=== PATIENT | female | born 1940 | race Caucasian/White ===

== ENCOUNTER 2018-10-08 04:06 | Inpatient (IN) | payer OTHER ==
[~2018-10-08] VITALS: Ht 162.6 cm; Wt 70.3 kg
[2018-10-08 04:56] LABS: HEMATOCRIT. 30.9 % (36.0-48.0); HEMOGLOBIN. 10.5 g/dL (12.0-16.0); MEAN CORPUSCULAR HEMOGLOBIN 29.4 pg (28.0-32.0); MEAN CORPUSCULAR VOLUME 86.5 fL (81.0-99.0); MEAN PLATELET VOLUME 7.5 fl (7.4-10.4); PLATELET 420 x1000/uL (130-400); RED BLOOD CELL COUNT 3.58 mill/uL (4.2-5.4); RED CELL DISTRIBUTION WIDTH 13.7 % (11.6-14.6)
[2018-10-08 05:07] LABS: CHLORIDE 98 mEq/L (98-107)
[2018-10-08 05:11] LABS: INR 1.2; PARTIAL THROMBOPLASTIN TIME 27.2 sec (23.4-31.0); PROTHROMBIN TIME 12.3 sec (9.1-11.1)
[2018-10-08 05:54] LABS: PLATELET ESTIMATE NORMAL
[2018-10-08] MEDS ORDERED: SODIUM CHLORIDE 0.9% 1,000 ML IV ONE (06:14)
[2018-10-08] MEDS ORDERED: FAMOTIDINE 20MG/2ML VIAL IV STA (06:14)
[2018-10-08] MEDS ORDERED: MORPHINE SULFATE 2 MG/ML CPJ (NOT FOR IM USE) IV STA (06:14)
[2018-10-08] MEDS ORDERED: ONDANSETRON HCL 4MG/2ML INJ IV STA (06:14)
[2018-10-08 07:09] LABS: INR 1.2
[2018-10-08 07:28] LABS: CLARITY URINE CLOUDY (CLEAR); COLOR URINE DARK YELLOW (YELLOW); KETONES URINE TRACE (NEGATIVE); LEUKOCYTE ESTERASE URINE 1+ (NEGATIVE); NITRITE URINE POSITIVE (NEGATIVE); OCCULT BLOOD URINE 2+ (NEGATIVE); PH URINE 5.5 (4.5-8.0); PROTEIN URINE 3+ (NEGATIVE); SPECIFIC GRAVITY URINE 1.023 (1.005-1.030)
[2018-10-08] MEDS ORDERED: PIPERACILLIN/TAZ 3.375G PREMIX 50 ML IV ONE (07:45)
[2018-10-08] MEDS ORDERED: ONDANSETRON HCL 4MG/2ML INJ IV PRN (10:15)
[2018-10-08] MEDS ORDERED: HYDROMORPHONE HCL/PF 2MG/ML CPJ IV PRN (11:00)
[2018-10-08 11:16] VITALS: BP 149/50
[2018-10-08 11:30] LABS: *AMPHETAMINES SCREEN URINE NEGATIVE (NEGATIVE); *BARBITURATES SCREEN URINE NEGATIVE (NEGATIVE); *BENZODIAZEPINES SCREEN URINE NEGATIVE (NEGATIVE); *COCAINE SCREEN URINE NEGATIVE (NEGATIVE)
[2018-10-08 11:31] LABS: CANNABINOID URINE SCREEN NEGATIVE (NEGATIVE); METHADONE URINE SCREEN NEGATIVE (NEGATIVE); OPIATES URINE SCREEN PRESUMTIVE POSITIVE (NEGATIVE); PHENCYCLIDINE URINE SCREEN NEGATIVE (NEGATIVE)
[2018-10-08] MEDS ORDERED: HYDRALAZINE 20MG/ML VIAL IV PRN (12:05)
[2018-10-08] MEDS ORDERED: DEXT 5%/0.45% NACL 1000ML 1,000 ML IV SCH ×2 (12:05→14:15)
[2018-10-08 13:10] VITALS: BP 149/50
[2018-10-08 13:53] LABS: LDL CHOLESTEROL 70 mg/dL (5-100)
[2018-10-08 13:54] LABS: HDL CHOLESTEROL 40 mg/dL (40-59)
[2018-10-08] MEDS ORDERED: CHLO25TA2 MT (14:18)
[2018-10-08] MEDS ORDERED: AMLO10TA4 MT (14:18)
[2018-10-08] MEDS ORDERED: DABI150C MT (14:18)
[2018-10-08] MEDS ORDERED: BISO5TAB13 MT (14:18)
[2018-10-08] MEDS ORDERED: PRAV20TA57 MT (14:18)
[2018-10-08] MEDS ORDERED: ACET-2853 MT (14:18)
[2018-10-08] MEDS: PIPERACILLIN/TAZ 3.375G PREMIX 50 ML IV SCH ×2 (14:35→18:34)
[2018-10-08 16:00] VITALS: BP 129/54
[2018-10-08] MEDS ORDERED: HYDROCODONE/ACETAMINOPHEN 5/325MG TABLET PO PRN (16:59)
[2018-10-08 20:00] VITALS: BP 120/45
[2018-10-09 00:30] VITALS: BP 121/52
[2018-10-09 01:10] VITALS: BP 121/52
[2018-10-09] MEDS ORDERED: PANTOPRAZOLE SODIUM 40 MG/VIAL IV SCH (09:00)
== END 2018-10-09 00:55 | disposition short-term general hospital (02) | DRG 871 ==
LOC: ER 04:06 → 7WST 07:51 → ENRESERV 10:03
PROVIDERS: ADMIT Internal Medicine; ATTEND Internal Medicine
DX: A41.9 Sepsis, unspecified organism (principal); E43 Unspecified severe protein-calorie malnutrition; K80.00 Calculus of gallbladder with acute cholecystitis without obstruction; N39.0 Urinary tract infection, site not specified; E87.1 Hypo-osmolality and hyponatremia; L03.115 Cellulitis of right lower limb; I10 Essential (primary) hypertension; I48.91 Unspecified atrial fibrillation; K76.0 Fatty (change of) liver, not elsewhere classified; K82.8 Other specified diseases of gallbladder; D64.9 Anemia, unspecified; E66.9 Obesity, unspecified; Z79.02 Long term (current) use of antithrombotics/antiplatelets; Z68.26 Body mass index [BMI] 26.0-26.9, adult
CPT/HCPCS: 36415; 71045; 76705; 80061; 80305; 83036; 83605; 83880; 84443; 84484; 93005; 93306; 96365; 99291; J2270; J2405; J2543; J3490